=== PATIENT | female | born 1985 | race Caucasian/White ===

== ENCOUNTER → 2020-09-14 09:53 | Outpatient (BNVA) | payer BC, SELFPAY | PROVIDERS: PCP Family Medicine; Visit Provider Internal Medicine Rheumatology | DX: M19.90 Unspecified osteoarthritis, unspecified site (principal); R76.8 Other specified abnormal immunological findings in serum; Z79.899 Other long term (current) drug therapy; Z11.59 Encounter for screening for other viral diseases; Z11.1 Encounter for screening for respiratory tuberculosis; I73.00 Raynaud's syndrome without gangrene; R00.9 Unspecified abnormalities of heart beat; R03.0 Elevated blood-pressure reading, without diagnosis of hypertension | CPT/HCPCS: 99204 ==

== ENCOUNTER 2020-09-14 12:00 | Outpatient (CLI) | payer BC, SELFPAY ==
--- NOTE | 2020-09-14 12:25 | XR_ITS ---
WS: [id number] XR hand RT min 3V* [id number] REASON FOR EXAM: Z79.899 - Other [facility] (current) drug therapy FINDINGS: No diffuse or focal bony abnormality. The joint spaces of the hand are relatively well preserved. No subchondral bone changes identified. No erosions or periarticular soft tissue abnormality. XR/XR hand RT min 3V* [id number] IMPRESSION: No definite arthropathy identified.
--- NOTE | 2020-09-14 12:25 | XR_ITS ---
WS: [id number] XR foot LT min 3V* [id number] REASON FOR EXAM: Z79.899 - Other [facility] (current) drug therapy FINDINGS: No diffuse or focal bony abnormality. The joint spaces of the forefoot, midfoot, and hindfoot are relatively well preserved with no subchon dral bony abnormality. No erosions. No periarticular soft tissue abnormality. XR/XR foot LT min 3V* 32099 IMPRESSION: No significant arthropathic change.
--- NOTE | 2020-09-14 12:25 | XR_ITS ---
WS: [id number] XR foot RT min 3V* 16195 REASON FOR EXAM: Z79.899 - Other [facility] (current) drug therapy FINDINGS: No diffuse or focal bony abnormality is identified in the forefoot, midfoot, or hindfoot. The joint spaces of the forefoot, midfoot, and hindfoot are relatively well-preserved. No erosions or periarticular soft tissue abnormality is identified. XR/XR foot RT min 3V* 31435 IMPRESSION: No significant arthropathic abnormality.
--- NOTE | 2020-09-14 12:25 | XR_ITS ---
WS: [id number] XR sacroiliac jts m 3V 14427 REASON FOR EXAM: Z79.899 - Other [facility] (current) drug therapy FINDINGS: The sacroiliac joint spaces are well defined outline by thin intact cortical margins. No erosions or evidence of effusion. No other significant abnormality is identified. XR/XR sacroiliac jts m 3V 21145 IMPRESSION: Normal sacroiliac joints.
--- NOTE | 2020-09-14 12:25 | XR_ITS ---
WS: [id number] XR hand LT min 3V* 54542 REASON FOR EXAM: Z79.899 - Other [facility] (current) drug therapy FINDINGS: No diffuse or focal bony abnormality. The joint spaces of the left hand are relatively well-preserved with no subchondral bony changes. No erosions or periarticular soft tissue abnormality noted. XR/XR hand LT min 3V* [id number] IMPRESSION: No significant findings of arthropathy.
[2020-09-14 13:10] LABS: Bilirubin Urine Neg (Negative); Blood Urine 2+ (Negative); Glucose Urine UA Norm (Normal); Ketones Urine Negative (Negative); Leukocyte Esterase Urine Negative (Negative); Nitrate Urine Negative (Negative); Protein Urine Neg (Negative); RBC Urine 0-4 /hpf (0-2); Specific Gravity, Urine 1.015 (1.005-1.030); Urine Appearance Clear (CLEAR); Urine Color Yellow (Yellow); Urobilinogen Urine Norm (Negative); pH Urine 5 (5-7)
[2020-09-14 13:11] LABS: Bacteria Urine TRACE /hpf
[2020-09-14 13:36] LABS: Urine Creatinine 102 mg/dL (28-217); Urine Protein Random 9 mg/dL
[2020-09-14 13:37] LABS: C Reactive Protein 14.9 mg/L (0.0-4.9)
[2020-09-14 13:45] LABS: Erythrocyte Sedimentation Rate 41 mm/hr (0-15)
[2020-09-14 13:59] LABS: Hepatitis B Core AB, Total Non-Reactive (Nonreactive); Hepatitis B Surface Antigen Non-Reactive (Nonreactive); Hepatitis C Virus Antibody Non-Reactive (Nonreactive)
[2020-09-15 13:47] LABS: Anti-Double Strand DNA AB 1 IU/mL; Centromere B Antibody <1.0 NEG AI (<1.0 NEG); JO-1 Antibody <1.0 NEG AI (<1.0 NEG); SCL 70 <1.0 NEG AI (<1.0 NEG); Smith Antibody <1.0 NEG AI (<1.0 NEG)
[2020-09-15 14:48] LABS: Cyclic Citrullinated Peptide <16 UNITS
[2020-09-15 16:37] LABS: Thyroglobulin AB <1 IU/mL (< or = 1)
[2020-09-16 15:42] LABS: Quantiferon Mitogen >10.00 IU/mL; Quantiferon Nil 0.02 IU/mL; Quantiferon Plus TB2 0.01 IU/mL; Quantiferon TB Gold NEGATIVE (NEGATIVE)
[2020-09-18 19:57] LABS: HLA-B27 NEGATIVE (NEGATIVE)
== END 2020-09-14 12:01 | disposition home or self-care (01) ==
PROVIDERS: PCP Family Medicine; Visit Provider Internal Medicine Rheumatology
DX: M19.90 Unspecified osteoarthritis, unspecified site (principal); M45.9 Ankylosing spondylitis of unspecified sites in spine; Z79.899 Other long term (current) drug therapy; Z11.59 Encounter for screening for other viral diseases; Z11.1 Encounter for screening for respiratory tuberculosis
CPT/HCPCS: 36415; 72202; 73130; 73630; 81001; 82570; 84156; 85651; 86140; 86225; 86235; 86480; 86704; 86800; 86803; 86812; 87340

== ENCOUNTER → 2020-12-23 13:23 | Outpatient (BNVA) | payer BC, SELFPAY | PROVIDERS: PCP Family Medicine; Visit Provider Internal Medicine Rheumatology | DX: M05.9 Rheumatoid arthritis with rheumatoid factor, unspecified (principal); Z79.899 Other long term (current) drug therapy; M19.90 Unspecified osteoarthritis, unspecified site; I73.00 Raynaud's syndrome without gangrene | CPT/HCPCS: 99214 ==

== ENCOUNTER 2022-06-23 15:00 | Outpatient (CLI) | payer BC, SELFPAY ==
[2022-06-23 16:11] LABS: Basophils # 0.1 10^3/uL (0.0-0.1); Basophils % 1.5 %; Eosinophils # 0.3 10^3/uL (0.0-0.8); Eosinophils % 4.6 %; Hematocrit 40.7 % (37.0-47.0); Hemoglobin 13.3 g/dL (11.5-15.3); Lymphocytes # 1.4 10^3/uL (0.8-4.8); Lymphocytes % 23.4 %; Mean Corpuscular HGB Conc 32.7 g/dL (30.0-36.0); Mean Corpuscular Hemoglobin 27.4 pg (28.0-34.0); Mean Corpuscular Volume 83.9 fl (81-99); Mean Platelet Volume 11.4 fL (7.4-10.4); Monocytes # 0.6 10^3/uL (0.2-0.9); Monocytes % 9.5 %; Neutrophils # 3.67 10^3/uL (1.8-7.7); Neutrophils % 60.8 %; Nucleated Red Blood Cells % 0 %; Platelet Count 254 10^3/cmm (130-400); Red Blood Count 4.85 10^6/uL (4.1-5.3); Red Cell Distribution Width 14.2 % (12.1-15.1)
[2022-06-23 16:31] LABS: Alanine Aminotransferase 19 U/L (0-33); Alkaline Phosphatase 58 U/L (35-105); Aspartate Amino Transferase 19 U/L (0-32); C Reactive Protein 4.3 mg/L (0.0-4.9); Globulin 2.9 g/dL (1.3-4.6); Glomerular Filtration Rate 113.8 mL/min (90-130); Total Bilirubin 0.2 mg/dL (0.15-1.2); Total Protein 6.9 g/dL (6.6-8.7)
== END 2022-06-23 15:01 | disposition home or self-care (01) ==
PROVIDERS: PCP Family Medicine; Visit Provider Internal Medicine Rheumatology
DX: M35.9 Systemic involvement of connective tissue, unspecified (principal); Z79.899 Other long term (current) drug therapy
CPT/HCPCS: 36415; 80076; 82565; 85025; 86140

== ENCOUNTER 2022-12-19 11:51 | Outpatient (CLI) | payer BC, SELFPAY ==
[2022-12-19 12:12] LABS: Basophils # 0.1 10^3/uL (0.0-0.1); Basophils % 0.9 %; Eosinophils # 0.3 10^3/uL (0.0-0.8); Eosinophils % 4.2 %; Hematocrit 45.5 % (36-47); Lymphocytes # 1.8 10^3/uL (0.8-4.8); Lymphocytes % 23.7 %; Mean Corpuscular HGB Conc 33.2 g/dL (30-55); Mean Corpuscular Hemoglobin 27.8 pg (27-33); Mean Corpuscular Volume 83.6 fl (85-98); Monocytes # 0.7 10^3/uL (0.2-0.9); Neutrophils # 4.68 10^3/uL (1.8-7.7); Neutrophils % 62.1 %; Nucleated Red Blood Cells % 0 %; Platelet Count 270 10^3/cmm (157-399); Red Blood Count 5.44 10^6/uL (3.85-5.65); Red Cell Distribution Width 13.9 % (12.1-15.1); White Blood Count 7.55 10^3/uL (3.29-11.43)
[2022-12-19 12:38] LABS: Alanine Aminotransferase 11 U/L (0-33); Albumin Level 4.5 g/dL (3.5-5.2); Alkaline Phosphatase 73 U/L (35-105); Aspartate Amino Transferase 20 U/L (0-32); C Reactive Protein 4.1 mg/L (0.0-4.9); Globulin 3.2 g/dL (1.3-4.6); Glomerular Filtration Rate 113.8 mL/min (90-130); Total Bilirubin 0.3 mg/dL (0.15-1.2); Total Protein 7.7 g/dL (6.6-8.7)
== END 2022-12-19 11:52 | disposition home or self-care (01) ==
PROVIDERS: PCP Family Medicine; Visit Provider Internal Medicine Rheumatology
DX: M35.9 Systemic involvement of connective tissue, unspecified (principal); Z79.899 Other long term (current) drug therapy
CPT/HCPCS: 36415; 80076; 82565; 85025; 86140

== ENCOUNTER → 2023-04-04 14:26 | Outpatient (BNVA) | payer BC, SELFPAY | PROVIDERS: PCP Family Medicine; Visit Provider Internal Medicine Rheumatology | DX: Z79.899 Other long term (current) drug therapy (principal); M19.90 Unspecified osteoarthritis, unspecified site; M54.9 Dorsalgia, unspecified | CPT/HCPCS: 36415; 72100; 80076; 82565; 85025; 85651; 86140 ==

== ENCOUNTER → 2024-01-01 14:34 | Outpatient (BNVA) | payer BC, SELFPAY | PROVIDERS: PCP Family Medicine; Visit Provider Orthopaedic Surgery | DX: M54.9 Dorsalgia, unspecified (principal) | CPT/HCPCS: 72110 ==

== ENCOUNTER 2024-01-24 16:02 | Outpatient (CLI) | payer BC, SELFPAY ==
--- NOTE | 2024-01-24 16:45 | MR_ITS ---
WS: [id number] MRI LUMBAR SPINE NONCONTRAST HISTORY: back pain COMPARISON: None available. TECHNIQUE: Sagittal and axial multisequence imaging is submitted. Normal lumbar alignment with no compression fractures or marrow edema. Disc spaces and vertebral body heights are well-preserved. Conus terminates normally at L1-2 disc level. L1-L2: Normal. L2-L3: Normal. L3-L4: Mild annular disc bulging with ligamentum flavum and facet arthritis. Fluid in the facet joint s. There is mild subacromial encroachment by disc disease on the traversing L4 nerve roots. No high-g rade stenosis. L4-L5: Mild annular disc bulge with a tiny central disc protrusion. There is disc contact on the juan ramon ersing L5 nerve roots, mild ligamentum flavum and facet arthritis. Mild central, bilateral subarticul ar recess stenosis. L5-S1: Mild annular disc bulge with minimal foraminal narrowing. No significant stenosis. Paravertebral soft tissues are negative. MR/MR lumbar spine wo con* 11585 IMPRESSION: 1. No lumbar spine marrow edema or high-grade stenosis. 2. L4-5: Mild central and bilateral subarticular recess stenosis. There is its tiny central disc protrusion with disc bulging encroaching upon the traversing L5 nerve roots. 3. L3-4: Minimal subacromial encroachment by disc bulging. 4. Minimal bilateral foraminal narrowing at L5-S1.
== END 2024-01-24 16:03 | disposition home or self-care (01) ==
LOC: RAD 16:05
PROVIDERS: PCP Family Medicine; Visit Provider Orthopaedic Surgery
DX: M54.9 Dorsalgia, unspecified (principal)
CPT/HCPCS: 36415; 72148; 80076; 82565; 85025; 85651; 86140

== ENCOUNTER 2024-06-25 11:27 | Outpatient (CLI) | payer BC, SELFPAY ==
[2024-06-25 12:04] LABS: Basophils # 0.1 10^3/uL (0.0-0.1); Eosinophils # 0.2 10^3/uL (0.0-0.8); Eosinophils % 2.8 %; Hematocrit 45.8 % (36-47); Lymphocytes # 2.3 10^3/uL (0.8-4.8); Lymphocytes % 27.4 %; Mean Corpuscular HGB Conc 33.2 g/dL (30-55); Mean Corpuscular Hemoglobin 28.1 pg (27-33); Mean Corpuscular Volume 84.7 fl (85-98); Mean Platelet Volume 11.5 fL (7.4-10.4); Monocytes # 0.8 10^3/uL (0.2-0.9); Monocytes % 9.1 %; Neutrophils # 4.88 10^3/uL (1.8-7.7); Neutrophils % 59.6 %; Nucleated Red Blood Cells % 0 %; Platelet Count 237 10^3/cmm (157-399); Red Blood Count 5.41 10^6/uL (3.85-5.65); Red Cell Distribution Width 13.7 % (12.1-15.1)
[2024-06-25 12:11] LABS: Erythrocyte Sedimentation Rate 9 mm/hr (0-15)
[2024-06-25 12:27] LABS: Alanine Aminotransferase 17 U/L (0-33); Albumin Level 4.5 g/dL (3.5-5.2); Alkaline Phosphatase 59 U/L (35-105); Aspartate Amino Transferase 13 U/L (0-32); Globulin 3.1 g/dL (1.3-4.6); Glomerular Filtration Rate 112.5 mL/min (90-130); Total Bilirubin 0.3 mg/dL (0.15-1.2); Total Protein 7.6 g/dL (6.6-8.7)
== END 2024-06-25 11:28 | disposition home or self-care (01) ==
PROVIDERS: PCP Family Medicine; Visit Provider Internal Medicine Rheumatology
DX: Z79.899 Other long term (current) drug therapy (principal); M35.9 Systemic involvement of connective tissue, unspecified; R76.8 Other specified abnormal immunological findings in serum
CPT/HCPCS: 36415; 80076; 82565; 85025; 85651; 86140